=== PATIENT | male | born 1995 | race Two or more races ===

== ENCOUNTER 2020-05-28 09:46 | Emergency (ER) | payer OTHER ==
[~2020-05-28] VITALS: Ht 175.3 cm; Wt 100.0 kg
[2020-05-28 09:57] VITALS: BP 120/79
[2020-05-28] MEDS ORDERED: DIPH,PERTUSS(ACELL),TET VAC/PF 0.5 ML SYRINGE. VAX IM ONE (11:15)
[2020-05-28] MEDS ORDERED: HYDR-3165 PO (11:18)
--- NOTE | 2020-05-28 11:18 | PHYS DOC ---
Past History Past Medical History: No Pertinent History Past Surgical History: No Surgical History Alcohol Use: Rarely General Adult EDM: Chief Complaint: FINGER INJURY HPI: HPI: 24-year-old male presents with right index finger laceration. The patient was changing a bolt on a floor scraping when his hand slipped and he lacerated his finger across the scraping lead. The patient immediately began to bleed and he knew he needed stitches. Patient denies any other injuries. He still can flex and extend his finger. No loss of feeling. Review of Systems: Review of Systems: Constitutional: Denies fever or chills Eyes: Denies change in visual acuity HENT: Denies nasal congestion or sore throat Respiratory: Denies cough or shortness of breath Cardiovascular: Denies chest pain or edema GI: Denies abdominal pain, nausea, vomiting, bloody stools or diarrhea : Denies dysuria Musculoskeletal: Denies back pain or joint pain Integument: Laceration right index finger Neurologic: Denies headache, focal weakness or sensory changes Endocrine: Denies polyuria or polydipsia Lymphatic: Denies swollen glands Psychiatric: Denies depression or anxiety Heart Score: Risk Factors: Risk Factors: DM, Current or recent (<one month) smoker, HTN, HLP, family histo ry of CAD, obesity. Risk Scores: Score 0 - 3: 2.5% MACE over next 6 weeks - Discharge Home Score 4 - 6: 20.3% MACE over next 6 weeks - Admit for Clinical Observation Score 7 - 10: 72.7% MACE over next 6 weeks - Early Invasive Strategies Allergies: Allergies: Allergies Coded Allergies Type Severity Reaction Last Updated Verified No Known Drug Allergies 05/28/20 No Physical Exam: PE: Constitutional: Well developed, well nourished, no acute distress, non-toxic appearance. [] HENT: Normocephalic, atraumatic, bilateral external ears normal, oropharynx moist, no oral exudates, nose normal. [] Eyes: PERRLA, EOMI, conjunctiva normal, no discharge. [] Neck: Normal range of motion, no tenderness, supple, no stridor. [] Cardiovascular:Heart rate regular rhythm, no murmur [] Lungs & Thorax: Bilateral breath sounds clear to auscultation [] Abdomen: Bowel sounds normal, soft, no tenderness, no masses, no pulsatile masses. [] Skin: 5 cm laceration of the dorsal aspect right index finger, no obvious tendon rupture. Sensation distal to wound. Neurovascularly intact. [] Back: No tenderness, no CVA tenderness. [] Extremities: No tenderness, no cyanosis, no clubbing, ROM intact, no edema. [] Neurologic: Alert and oriented X 3, normal motor function, normal sensory function, no focal deficits noted. [] Psychologic: Affect normal, judgement normal, mood normal. [] Current Patient Data: Vital Signs: Vital Signs Date Time Temp Pulse Resp B/P (MAP) Pulse Ox O2 Delivery O2 Flow Rate FiO2 05/28/20 09:57 98.1 69 16 120/79 (93) 98 Room Air EKG: EKG: [] Radiology/Procedures: Radiology/Procedures: [] Course & Med Decision Making: Course & Med Decision Making Pertinent Labs and Imaging studies reviewed. (See chart for details) Able to repair the patient's laceration with sutures. See note below for more details. We gave him a tetanus shot in the ER. I will discharge him with Quinn 5/325 for pain. He is stable for discharge at this time. [] Dragon Disclaimer: Dragon Disclaimer: This electronic medical record was generated, in whole or in part, using a voice recognition dictation system. Laceration Repair Lac Repair Indication: [] 5 cm laceration of the right index finger. Procedure: I obtained verbal consent from the patient for suture repair of his index finger laceration. Wound was thoroughly irrigated with normal saline under pressure. No foreign bodies were found. Wound was anesthetized with 2% lidocaine without epinephrine. A total of 3 cc was used. Once good anesthesia was achieved, I repaired the wound with 4-0 Ethilon suture. 9 sutures were placed in interrupted fashion. There was good skin approximation. Bleeding was controlled. The patient's tetanus was updated in the ED. A clean, nonadherent dressing was placed over the wound as well as a splint. Total repaired wound length: 5 cm Other Items: None The patient tolerated the procedure well. Complications: Bryant flap. Departure Departure: Impression: Primary Impression: Laceration of right index finger Qualified Codes: S61.210A - Laceration without foreign body of right index finger without damage to nail, initial encounter Disposition: 01 HOME/RESIDENCE PRIOR TO ADM Condition: STABLE Referrals: PCP,NO (PCP) Patient Instructions: Laceration Care, Adult, [id number] Scripts Hydrocodone Bit/Acetaminophen (NORCO 5-325 TABLET) 1 Each Tablet 1 TAB PO PRN Q6HRS PRN for PAIN, #10 TAB 0 Refills Prov: SALOME WILLIAMSON DO 05/28/20 Justification of Admission: Justification of Admission: Justification of Admission Dx: N/A SALOME WILLIAMSON DO May 28, 2020 11:18
== END 2020-05-28 11:36 | disposition home or self-care (01) ==
LOC: ER 09:46
DX: S61.210A Laceration without foreign body of right index finger without damage to nail, initial encounter (principal); W26.8XXA Contact with other sharp object(s), not elsewhere classified, initial encounter; Y93.89 Activity, other specified; Y92.89 Other specified places as the place of occurrence of the external cause; Y99.8 Other external cause status
CPT/HCPCS: 12002; 90471; 90715; 99283